=== PATIENT | male | born 1985 | race Caucasian/White ===

== ENCOUNTER 2018-03-04 13:17 | Emergency (ER) | payer SELFPAY ==
[~2018-03-04] VITALS: Ht 170.2 cm; Wt 137.0 kg
[2018-03-04 13:28] VITALS: Ht 170.2 cm; Wt 137.0 kg
[2018-03-04 16:05] VITALS: BP 149/91
== END 2018-03-04 16:05 | disposition home or self-care (01) ==
LOC: ED 13:17
DX: J06.9 Acute upper respiratory infection, unspecified (principal)